=== PATIENT | male | born 1975 | race Hispanic/Latino ===

== ENCOUNTER 2024-08-08 16:18 | Emergency (ER) | payer BC ==
[~2024-08-08] VITALS: Ht 172.7 cm; Wt 113.4 kg
[2024-08-08 17:12] VITALS: PULSE 88; RESP 17; TEMP 98.3; O2SAT 100
[2024-08-08] MEDS ORDERED: KETOROLAC TROMETHAMINE 60 MG/2 ML VIAL ONE (17:23)
[2024-08-08] MEDS: KETOROLAC TROMETHAMINE 60 MG/2 ML VIAL IM ONE (17:33)
[2024-08-08] MEDS ORDERED: CYCLOBENZAPRINE5 MG PO (19:08)
[2024-08-08] MEDS ORDERED: NAPROSYN500 MG PO (19:08)
== END 2024-08-08 19:15 | disposition home or self-care (01) ==
LOC: ER 19:00
DX: M54.50 Low back pain, unspecified (principal)
CPT/HCPCS: 99282; J1885